=== PATIENT | female | born 1965 | race Two or more races ===

== ENCOUNTER 2017-04-16 15:35 | Emergency (ER) | payer MEDICAID ==
[~2017-04-16] VITALS: Ht 162.6 cm; Wt 77.1 kg
[2017-04-16] MEDS ORDERED: Tetracaine 0.5% Opth 4ml Soln LEFT EYE ONE (18:00)
[2017-04-16] MEDS ORDERED: Fluorescein Strips ONE (18:02)
[2017-04-16 18:15] VITALS: BP 119/73
[2017-04-16] MEDS ORDERED: Norco 5mg/325mg tab ORAL ONE (18:45)
[2017-04-16] MEDS ORDERED: CYCLOGYL2 M1 OP (19:46)
[2017-04-16] MEDS ORDERED: CIPROFLOXACIN2.5 ML OP (19:46)
--- NOTE | 2017-04-16 19:48 | Emergency Room Report ---
History of Present Illness General Chief Complaint: Eye Problems Source: Patient Present Illness HPI 52 y/o female c/o left eye discomfort x 1 day. States she had broken glass in her eye makeup and decided not to waste it and after using it, felt like she had a piece of glass in her left eye. States since that time, she tried washing her left eye w/o improvement of sxs. States since then, her left eye has become red with purulent drainage. States she feels her left eye is scratched. Has mild photophobia. Denies contact lens use. TDAP is UTD. Not taking medications from sxs. Patient denies any rash, blisters, vision changes, blindness, headache , periorbital swelling, fever, CP, SOB or cough. Allergies: Coded Allergies: No Known Allergies (Unverified , 04/16/17) Patient History Past Medical History: see triage record Pertinent Family History: none Immunizations: UTD Reviewed Nursing Documentation: PMH: Agreed, PSxH: Agreed Nursing Documentation-PMH Past Medical History: No Stated History Review of Systems All Other Systems: negative except mentioned in HPI Physical Exam Vital Signs Date Time Temp Pulse Resp B/P (MAP) Pulse Ox O2 Delivery O2 Flow Rate FiO2 04/16/17 15:46 97.2 79 20 117/66 99 Room Air Sp02 EP Interpretation: reviewed, normal General Appearance: no apparent distress, alert, GCS 15, non-toxic Head: normocephalic, atraumatic Eyes: bilateral eye PERRL, bilateral eye fluoroscene uptake - around the limbus of left eye. No corneal abrasion, bilateral eye EOMI, bilateral eye Scleral Injection, bilateral eye other - relief with tentracaine ENT: hearing grossly normal, normal pharynx, no angioedema, normal voice Neck: full range of motion, supple/symm/no masses Respiratory: chest non-tender, lungs clear, normal breath sounds, speaking full sentences Cardiovascular #1: regular rate, rhythm, no edema Musculoskeletal: gait/station normal Neurologic: alert, oriented x3, responsive, motor strength/tone normal, sensory intact, speech normal Psychiatric: judgement/insight normal, memory normal, mood/affect normal, no suicidal/homicidal ideation Skin: normal color, no rash, warm/dry, well hydrated Medical Decision Making PA Attestation Dr. Smallwood my supervising physician with whom patient management has been discussed with. Diagnostic Impression: Primary Impression: Anterior uveitis Additional Impression: Bacterial conjunctivitis of left eye ER Course Pt. presents to the ED c/o glass in left eye Ddx considered but are not limited to glaucoma, corneal abrasion, bacterial conjunctivitis, allergic conjunctivitis, viral conjunctivitis, CVA, ophthalmic thrombosis retinal detachment Vital signs: are WNL, pt. is afebrile H&PE are most consistent with uveitis with bacterial conjunctivitis ORDERS: Scott lamp with fluoroscopy shows uptake around limbus. There was no uptake showing corneal abrasion, ocular pressure with mini-pen. ED INTERVENTIONS: Tetracaine 2 ggts, eye irrigation DISCHARGE: At this time pt. is stable for d/c to home. Spoke with channeling machine runner who agreed with diagnosis and plan via consult. Will provide printed patient care instructions, and any necessary prescriptions. Care plan and follow up instructions have been discussed with the patient prior to discharge. Last Vital Signs Date Time Temp Pulse Resp B/P (MAP) Pulse Ox O2 Delivery O2 Flow Rate FiO2 04/16/17 18:15 97.5 56 20 119/73 100 Room Air Disposition: HOME, SELF-CARE Condition: Stable Scripts Ciprofloxacin Hcl (CIPROFLOXACIN HCL) 2.5 Ml Drops 2 DROP OP Q4HR for 7 Days, #10 ML Prov: SABRY,TAMEEM P.A. 04/16/17 Cyclopentolate Hcl (CYCLOGYL) 2 Ml Drops 1 DROP OP THREE TIMES A DAY for 3 Days, #10 ML Prov: SABRY,TAMEEM P.A. 04/16/17 Referrals: NOT CHOSEN [facility]/MD,REFERRING (PCP) Patient Instructions: Bacterial Conjunctivitis, Uveitis Additional Instructions: Take medication as directed. Patient advised on symptoms of Corneal Abrasions. Advised to follow up with channeling machine runner within 2-3 days. Advised if you think you have something in your eye, you can try to remove it. But be careful not to irritate your eye. You can also pull your upper eyelid over your lower eyelid to try to brush away the object, such as an eye lash. Do not rub or press on it. Blink a few times to see if you can remove anything that might be in your eye. If that doesn't work, rinse your eye with water once or twice. But rinsing more than a few times can make the problem worse. Patient is to go to ER right away if you have the symptoms above and your eye still hurts a lot after you've tried rinsing it. While waiting to see the doctor, you might feel better if you sit quietly in a darkened room with your eyes closed. RODDY BRINK Apr 16, 2017 19:48
[2017-04-16 19:51] VITALS: BP 119/73
[2017-04-16] MEDS ORDERED: Fluorescein Strips LEFT EYE ONE (20:00)
== END 2017-04-16 20:01 | disposition home or self-care (01) ==
LOC: EMR 17:18
DX: H20.9 Unspecified iridocyclitis (principal); H10.9 Unspecified conjunctivitis; B96.89 Other specified bacterial agents as the cause of diseases classified elsewhere
CPT/HCPCS: 99284